=== PATIENT | female | born 1965 | race Caucasian/White ===

== ENCOUNTER 2017-12-10 07:04 | Emergency (ER) | payer OTHER ==
--- NOTE | 2017-12-10 07:13 | EDM.PDOC ---
ED HPI GENERAL MEDICAL PROBLEM - General Chief Complaint: Cardiovascular Problem Stated Complaint: [id number] SVT ATTACK Time Seen by Provider: 12/10/17 07:12 Source of Information: Reports: Patient, RN, RN Notes Reviewed History Limitations: Reports: No Limitations - History of Present Illness INITIAL COMMENTS - FREE TEXT/NARRATIVE: Pt presents tot he ER with c/o a bout of SVT. She states it began about 5:50am this morning. She denies any chest pain or SOB. She states upon arrival she feels that her heartrate has normalized. She states this has happened in the past. She states she has also been in Af[facility] in the past. Onset: Today, Sudden Shoulder Pain Score (Numeric/FACES): 2 - Related Data Allergies Allergy/AdvReac Type Severity Reaction Status Date / Time hydrocodone Allergy Itching Verified 12/10/17 07:18 metronidazole [From Flagyl] Allergy Anaphylactic Verified 12/10/17 07:18 Shock sulfamethoxazole Allergy Anaphylactic Verified 12/10/17 07:18 [From Septra] Shock trimethoprim [From Septra] Allergy Anaphylactic Verified 12/10/17 07:18 Shock Home Meds: Home Meds Aspirin [Bobby Chewable Aspirin] 81 mg PO DAILY 12/10/17 [History] Celecoxib 200 mg PO DAILY 12/10/17 [History] Ibuprofen [Motrin] 800 mg PO ASDIRECTED PRN 12/10/17 [History] Phentermine HCl 30 mg PO DAILY 12/10/17 [History] ED ROS GENERAL - Review of Systems Review Of Systems: ROS reveals no pertinent complaints other than HPI. ED EXAM, GENERAL - Physical Exam Exam: See Below Exam Limited By: No Limitations General Appearance: Alert, WD/WN, No Apparent Distress Eye Exam: Bilateral Eye: EOMI, Normal Inspection Ears: Normal External Exam, Hearing Grossly Normal Nose: Normal Inspection Throat/Mouth: Normal Inspection, Normal Voice, No Airway Compromise Head: Atraumatic, Normocephalic Neck: Normal Inspection, Supple, Non-Tender, Full Range of Motion Respiratory/Chest: No Respiratory Distress, Lungs Clear, Normal Breath Sounds, No Accessory Muscle Use, Chest Non-Tender Cardiovascular: Normal Peripheral Pulses, Regular Rate, Rhythm, No Edema, No Gallop, No JVD, No Murmur, No Rub Peripheral Pulses: 2+: Radial (L), Radial (R) GI/Abdominal: Normal Bowel Sounds, Soft, Non-Tender (Female) Exam: Deferred Rectal (Female) Exam: Deferred Back Exam: Normal Inspection, Full Range of Motion Extremities: Normal Inspection, Normal Range of Motion, Non-Tender, No Pedal Edema, Normal Capillary Refill Neurological: Alert, Oriented, CN II-XII Intact, Normal Cognition, Normal Gait, Normal Reflexes, No Motor/Sensory Deficits Psychiatric: Normal Affect, Normal Mood Skin Exam: Warm, Dry, Intact, Normal Color, No Rash Lymphatic: No Adenopathy EKG INTERPRETATION EKG Date: 12/10/17 Time: 07:05 Rhythm: NSR Rate (Beats/Min): 76 [place]: Normal P-Wave: Present QRS: Normal ST-T: Normal QT: Normal Comparison: NA - No Prior EKG Course - Vital Signs Last Recorded V/S: Last Vital Signs Temp 95.4 F 12/10/17 07:11 Pulse 78 12/10/17 07:11 Resp 16 12/10/17 07:11 BP 100/66 12/10/17 07:11 Pulse Ox 100 12/10/17 07:11 - Orders/Labs/Meds Orders: Active Orders 24 hr Category Date Time Status EKG Documentation Completion [RC] STAT Care 12/10/17 07:11 Active Peripheral IV Care [RC] . DIRECTED Care 12/10/17 07:12 Active Chest 1V Frontal [CR] Stat Exams 12/10/17 07:11 Taken DRUG SCREEN URINE BIORAD [URCHEM] Stat Lab 12/10/17 07:11 Ordered UA W/MICROSCOPIC [URIN] Stat Lab 12/10/17 07:11 Ordered Sodium Chloride 0.9% [Saline Flush] Med 12/10/17 07:11 Active 10 ml FLUSH ASDIRECTED PRN Peripheral IV Insertion Adult [OM.PC] Stat Oth 12/10/17 07:11 Ordered Medication Orders Sodium Chloride (Saline Flush) 10 ml FLUSH ASDIRECTED PRN PRN Reason: Keep Vein Open Labs: Laboratory Tests 12/10/17 12/10/17 12/10/17 Range/Units 07:16 07:16 07:16 WBC 6.7 (5.0-10.0) 10^3/uL RBC 4.89 (4.2-5.4) 10^6/uL Hgb 15.1 (12.0-16.0) g/dL Hct 43.5 (37.0-47.0) % MCV 89.0 (80-100) fL MCH 30.9 (27.0-34.0) pg MCHC 34.7 (33.0-35.0) g/dL Plt Count 271 (150-450) 10^3/uL Neut % (Auto) 56.9 (42.2-75.2) % Lymph % (Auto) 31.9 (20.5-50.1) % [place] % (Auto) 8.6 H (2-8) % Eos % (Auto) 2.2 (1.0-3.0) % Baso % (Auto) 0.4 (0.0-1.0) % Sodium 139 (135-145) mmol/L Potassium 3.4 L (3.6-5.0) mmol/L Chloride 107 (101-111) mmol/L Carbon Dioxide 21.0 (21.0-31.0) mmol/L Anion Gap 14.4 BUN 20 H (7-18) mg/dL Creatinine 1.2 (0.6-1.3) mg/dL Est Cr Clr Drug Dosing 53.94 mL/min Estimated GFR (MDRD) 47 BUN/Creatinine Ratio 16.66 Glucose 155 H (74-105) mg/dL Calcium 9.1 (8.4-10.2) mg/dl Total Bilirubin 0.6 (0.2-1.0) mg/dL AST 25 (10-42) IU/L ALT 20 (10-60) IU/L Alkaline Phosphatase 68 (42-121) IU/L Troponin I < 0.02 (0.00-0.02) ng/ml Total Protein 7.3 (6.7-8.2) g/dl Albumin 4.2 (3.2-5.5) g/dl Globulin 3.1 Albumin/Globulin Ratio 1.35 TSH, Ultra Sensitive 3.47 (0.45-5.33) uIu/mL Ethyl Alcohol < 5 mg/dL Meds: Medications Generic Name Dose Route Start Last Admin Trade Name Freq PRN Reason Stop Dose Admin Sodium Chloride 10 ml 12/10/17 07:11 Saline Flush FLUSH ASDIRECTED PRN Keep Vein Open - Radiology Interpretation Free Text/Narrative:: Chest x-ray: See Rad report Departure - Departure Time of Disposition: 08:16 Disposition: Home, Self-Care 01 Condition: Fair Clinical Impression: Palpitations, SVT (supraventricular tachycardia) Instructions: Supraventricular Tachycardia, Adult, [id number], Palpitations, [id number] Forms: ED Department Discharge Additional Instructions: Follow up with your primary care facility - My Orders Last 24 Hours: My Active Orders 12/10/17 07:11 EKG Documentation Completion [RC] STAT Chest 1V Frontal [CR] Stat DRUG SCREEN URINE BIORAD [URCHEM] Stat UA W/MICROSCOPIC [URIN] Stat Sodium Chloride 0.9% [Saline Flush] 10 ml FLUSH ASDIRECTED PRN Peripheral IV Insertion Adult [OM.PC] Stat 12/10/17 07:12 Peripheral IV Care [RC] . DIRECTED - Assessment/Plan Last 24 Hours: My Active Orders 12/10/17 07:11 EKG Documentation Completion [RC] STAT Chest 1V Frontal [CR] Stat DRUG SCREEN URINE BIORAD [URCHEM] Stat UA W/MICROSCOPIC [URIN] Stat Sodium Chloride 0.9% [Saline Flush] 10 ml FLUSH ASDIRECTED PRN Peripheral IV Insertion Adult [OM.PC] Stat 12/10/17 07:12 Peripheral IV Care [RC] . DIRECTED
[2017-12-10 07:42] LABS: CHLORIDE,CL 107 mmol/L (101-111); SODIUM,NA 139 mmol/L (135-145)
[2017-12-10] MEDS: Sodium Chloride 0.9% 10 ML Syringe FLUSH PRN (08:19)
--- NOTE | 2017-12-13 08:14 | EKG ---
12/10/2017- DANIE BRASHER - FINDINGS: EKG per my reading shows sinus rhythm at the rate of 76. MODL /[id number]
== END 2017-12-10 08:30 | disposition home or self-care (01) ==
LOC: DL.ED 07:04
DX: I47.1 Supraventricular tachycardia (principal); R00.2 Palpitations; Z88.8 Allergy status to other drugs, medicaments and biological substances; Z88.2 Allergy status to sulfonamides; Z79.899 Other long term (current) drug therapy
CPT/HCPCS: 36415; 71045; 80053; 84443; 84484; 85025; 93005; 99285; G0480; J7050

== ENCOUNTER 2018-09-23 10:35 | Emergency (ER) | payer OTHER ==
[2018-09-23] MEDS ORDERED: Fluorescein 1 MG Ophth Strip EYELF ONE (10:41)
[2018-09-23] MEDS ORDERED: Tetracaine HCl/PF 0.5% 4 ML Bottle EYELF ONE (10:41)
--- NOTE | 2018-09-23 10:43 | EDM.PDOC ---
ED HPI GENERAL MEDICAL PROBLEM - General Chief Complaint: Eye Problems Stated Complaint: LEFT EYE IRRITATION Time Seen by Provider: 09/23/18 10:50 Source of Information: Reports: Patient History Limitations: Reports: No Limitations - History of Present Illness INITIAL COMMENTS - FREE TEXT/NARRATIVE: Patient comes emergency Department today with complaints of the left eye pain. Just prior to arrival the patient was at work when she suddenly felt something painful and irritating on her eye. Some blurriness to the left eye but no changes to visual acuity. Tetanus is up to date and no grinding of metal or other objects recently. - Related Data Allergies Allergy/AdvReac Type Severity Reaction Status Date / Time hydrocodone Allergy Itching Verified 09/23/18 10:39 metronidazole [From Flagyl] Allergy Anaphylactic Verified 09/23/18 10:39 Shock sulfamethoxazole Allergy Anaphylactic Verified 09/23/18 10:39 [From Septra] Shock trimethoprim [From Marra] Allergy Anaphylactic Verified 09/23/18 10:39 Shock Home Meds: Home Meds Aspirin [Bobby Chewable Aspirin] 81 mg PO DAILY 12/10/17 [History] Celecoxib 200 mg PO DAILY 12/10/17 [History] Ibuprofen [Motrin] 800 mg PO ASDIRECTED PRN 12/10/17 [History] Phentermine HCl 30 mg PO DAILY 12/10/17 [History] Past Medical History HEENT History: Reports: None Other Cardiovascular History: SVT x 5 Respiratory History: Reports: None Gastrointestinal History: Reports: None Genitourinary History: Reports: None [employer] History: Reports: None Musculoskeletal History: Reports: Arthritis Neurological History: Reports: None Psychiatric History: Reports: None Endocrine/Metabolic History: Reports: Obesity/BMI 30+ Hematologic History: Reports: None Immunologic History: Reports: None Oncologic (Cancer) History: Reports: None Dermatologic History: Reports: None - Infectious Disease History Infectious Disease History: Reports: Chicken Pox - Past Surgical History Head Surgeries/Procedures: Reports: None GI Surgical History: Reports: Appendectomy Female Surgical History: Reports: Breast Implant, Breast Reconstruction Other Musculoskeletal Surgeries/Procedures:: ACL< knee surgury Social & Family History - Caffeine Use Caffeine Use: Reports: Coffee ED ROS GENERAL - Review of Systems Review Of Systems: ROS reveals no pertinent complaints other than HPI. ED EXAM GENERAL W FULL EYE - Physical Exam Exam: See Below Exam Limited By: No Limitations General Appearance: Alert, WD/WN Eye Exam: Left Eye: Corneal Abrasion (with fluorosine at the 2 o clock position outside of the iris is a transvers superficial abrasion. ), Other (No foreign material and eye rinsed with copius amounts of saline. ), Bilateral Eye: EOMI, PERRL Eyelids: Bilateral: Normal Appearance Extraocular Movements: Bilateral: Intact Pupils: Normal Accommodation Pupillary Size: Bilateral: 3 mm Pupillary Reaction: Bilateral: Brisk Course - Vital Signs Last Recorded V/S: Last Vital Signs Temp 36.6 C 09/23/18 10:39 Pulse 87 09/23/18 10:39 Resp 16 09/23/18 10:39 BP 130/74 09/23/18 10:39 Pulse Ox 100 09/23/18 10:39 - Orders/Labs/Meds Meds: Medications Discontinued Medications Generic Name Dose Route Start Last Admin Trade Name Freq PRN Reason Stop Dose Admin Ciprofloxacin 2 ml 09/23/18 11:00 09/23/18 11:10 Ciprofloxacin 0.3% Ophth Soln OP 09/23/18 11:01 2 ml ONETIME ONE Administration Fluorescein Sodium 1 mg 09/23/18 10:41 09/23/18 11:11 Ful-Lisandra EYELF 09/23/18 10:42 1 mg ONETIME ONE Administration Ibuprofen 600 mg 09/23/18 11:00 09/23/18 11:10 Motrin PO 09/23/18 11:01 600 mg ONETIME ONE Administration Tetracaine HCl 2 ml 09/23/18 10:41 09/23/18 11:10 Tetracaine 0.5% Steri-Unit Jacy EYELF 09/23/18 10:42 2 ml ASDIRECTED ONE Administration - Re-Assessments/Exams Free Text/Narrative Re-Assessment/Exam: 09/23/18 11:28 Eye was rinsed, Cipro gtts pain medications. Departure - Departure Time of Disposition: 11:05 Disposition: Home, Self-Care 01 Clinical Impression: Corneal abrasion Qualifiers: Encounter type: initial encounter Laterality: left Qualified Code(s): S05.02XA - Injury of conjunctiva and corneal abrasion without foreign body, left eye, initial encounter - Discharge Information Instructions: Corneal Abrasion, [id number] Forms: ED Department Discharge Additional Instructions: Tylenol and or Ibuprofen as needed for pain. If pain not controlled with above. Tramadol 1 tablet every 6 hrs with food as needed for pain caution sedation. rX given to the patient #15. 24hrs you should be 90% better and 100% in 48. If not meeting this trend follow up with optometry. Cipro eye drops, 2 drops to the left eye every 4hrs for the next 5 days. Bottle sent home from the ED. Return to the ED if new or worsening symptoms. Follow up as above. - Assessment/Plan Assessment:: Left corneal abrasion. Plan: Tylenol and or Ibuprofen as needed for pain. If pain not controlled with above. Tramadol 1 tablet every 6 hrs with food as needed for pain caution sedation. rX given to the patient #15. 24hrs you should be 90% better and 100% in 48. If not meeting this trend follow up with optometry. Cipro eye drops, 2 drops to the left eye every 4hrs for the next 5 days. Bottle sent home from the ED. Return to the ED if new or worsening symptoms. Follow up as above.
[2018-09-23] MEDS ORDERED: Ibuprofen 600 MG Tab PO ONE (11:00)
[2018-09-23] MEDS ORDERED: Ciprofloxacin 0.3% Ophth Soln 5 ML Bottle OP ONE (11:00)
== END 2018-09-23 11:16 | disposition home or self-care (01) ==
LOC: DL.ED 10:35
DX: S05.02XA Injury of conjunctiva and corneal abrasion without foreign body, left eye, initial encounter (principal); Z79.899 Other long term (current) drug therapy; Z88.6 Allergy status to analgesic agent; Z88.8 Allergy status to other drugs, medicaments and biological substances; X58.XXXA Exposure to other specified factors, initial encounter; Y92.009 Unspecified place in unspecified non-institutional (private) residence as the place of occurrence of the external cause
CPT/HCPCS: 99283; A9270

== ENCOUNTER 2023-01-03 14:54 | Emergency (ER) | payer OTHER ==
[2023-01-03] MEDS ORDERED: Sodium Chloride 0.9% 10 ML Syringe FLUSH PRN (16:01)
[2023-01-03] MEDS ORDERED: methylPREDNISolone Sod Succ 1,000 MG in Sodium Chloride 0.9% 100 ML IV ONE (16:01)
== END 2023-01-03 18:27 | disposition home or self-care (01) ==
LOC: DL.ED 14:54
DX: G35 Multiple sclerosis (principal); E66.9 Obesity, unspecified; Z68.31 Body mass index [BMI] 31.0-31.9, adult; Z88.5 Allergy status to narcotic agent; Z88.1 Allergy status to other antibiotic agents; Z88.2 Allergy status to sulfonamides; Z79.899 Other long term (current) drug therapy
CPT/HCPCS: 96365; 99283; J2930; J3490